=== PATIENT | male | born 1960 | race Caucasian/White ===

== ENCOUNTER 2019-02-21 12:44 | Emergency (ER) | payer OTHER ==
[2019-02-21] MEDS ORDERED: SODIUM CHLORIDE 0.9% 1,000 ML IV STA (14:13)
[2019-02-21] MEDS ORDERED: KETOROLAC 30 MG/ML 1 ML VIAL IVP STA (14:15)
--- NOTE | 2019-02-21 14:23 | ED ---
General Adult HPI - General Chief complaint: Abdominal Pain Stated complaint: poss kidney stones Time Seen by Provider: 02/21/19 14:12 Source: patient Mode of arrival: ambulatory Limitations: no limitations - History of Present Illness Initial comments: Dictation was produced using [employer] dictation software. please excuse any grammatical, word or spelling errors. Chief Complaint: 58-year-old male past medical history of kidney stones presents with left-sided flank pain. History of Present Illness: Patient is a 58-year-old male. One week ago he was diagnosed with kidney stones. Initially presented to [facility] for left-sided flank pain. Reports that he did have computed tomography scan. He was discharged with outpatient follow-up to kidney stone doctor. Patient reports that did not follow-up. She states because still having some mild left- sided flank pain. Reports that it is much more improved since then. He would like some oral pain medications to get him through the next couple days. The ROS documented in this emergency department record has been reviewed and confirmed by me. Those systems with pertinent positive or negative responses have been documented in the HPI. All other systems are other negative and/or noncontributory. PHYSICAL EXAM: General Impression: Alert and oriented x3, not in acute distress HEENT: Normocephalic atraumatic, extra-ocular movements intact, pupils equal and reactive to light bilaterally, mucous membranes moist. Cardiovascular: Heart regular rate and rhythm, S1&S2 audible, no murmurs, rubs or gallops Chest: Lungs clear to auscultation bilaterally, no rhonchi, no wheeze, no rales Abdomen: Bowel sounds present, abdomen soft, non-tender, non-distended, no organomegaly Musculoskeletal: Pulses present and equal in all extremities, no peripheral edema, no CVA tenderness Motor: no focal deficits noted Neurological: CN II-XII grossly intact, no focal motor or sensory deficits noted Skin: Intact with no visualized rashes Psych: Normal affect and mood ED course: 58-year-old male presents with left-sided flank pain. Reports that he was diagnosed with kidney stone last week. Patient is well-appearing. No acute distress. All signs upon arrival are within acceptable limits. Physical examination is. The patient is in any sort of distress. [facility] records were obtained. Transferred documentation shows that patient was seen on January 26 for chief complaint of abdominal pain. He did have a computed tomography scan of the abdomen and pelvis performed showing obstructive calculus in the mid left ureter with left-sided hydronephrosis. There were 2 stones. 4 mm stone that was obstructing at that time. Also a small 2 mm stone that was in the renal pelvis. Laboratory evaluation obtained. Mild leukocytosis of 12.8. Metabolic panel is unremarkable. Her slight hyperkalemia potassium 5.3. Urinalysis is unremarkable. Patient reevaluated after fluids and analgesia. Patient requests to be discharge. He states he feels well. Patient given Rx for pain medication. He is advised follow-up with urologist. Given follow-up. Patient understandable and agreeable to disposition. Return parameters discussed. he is discharged. - Related Data Previous Rx's Medication Instructions Recorded HYDROcodone/APAP 5-325MG [[place] 1 tab PO Q6HR PRN 3 Days #12 tab 02/21/19 5-325] Allergies Allergy/AdvReac Type Severity Reaction Status Date / Time No Known Allergies Allergy Verified 02/21/19 13:43 Review of Systems ROS Statement: Those systems with pertinent positive or pertinent negative responses have been documented in the HPI. ROS Other: All systems not noted in ROS Statement are negative. Past Medical History Additional Past Medical History / Comment(s): kidney stones History of Any Multi-Drug Resistant Organisms: None Reported Past Surgical History: Tonsillectomy Past Psychological History: No Psychological Hx Reported Smoking Status: Current every day smoker Past Alcohol Use History: Abuse Past Drug Use History: Marijuana General Exam Limitations: no limitations Course Vital Signs 02/21/19 13:41 Temperature 98.5 F Pulse Rate 92 Respiratory 20 Rate Blood Pressure 132/84 O2 Sat by Pulse 98 Oximetry Medical Decision Making - Lab Data Result diagrams: 02/21/19 14:28 02/21/19 14:28 Lab Results 02/21/19 02/21/19 02/21/19 Range/Units 13:45 14:28 14:28 WBC 12.8 H (3.8-10.6) k/uL RBC 5.13 (4.30-5.90) m/uL Hgb 15.8 (13.0-17.5) gm/dL Hct 46.7 (39.0-53.0) % MCV 91.0 (80.0-100.0) fL MCH 30.9 (25.0-35.0) pg MCHC 34.0 (31.0-37.0) g/dL RDW 13.0 (11.5-15.5) % Plt Count 350 (150-450) k/uL Neutrophils % 71 % Lymphocytes % 19 % Monocytes % 6 % Eosinophils % 2 % Basophils % 1 % Neutrophils # 9.1 H (1.3-7.7) k/uL Lymphocytes # 2.5 (1.0-4.8) k/uL Monocytes # 0.8 (0-1.0) k/uL Eosinophils # 0.2 (0-0.7) k/uL Basophils # 0.1 (0-0.2) k/uL Sodium 139 (137-145) mmol/L Potassium 5.3 H (3.5-5.1) mmol/L Chloride 100 (98-107) mmol/L Carbon Dioxide 30 (22-30) mmol/L Anion Gap 9 mmol/L BUN 20 (9-20) mg/dL Creatinine 0.90 (0.66-1.25) mg/dL Est GFR (CKD-EPI)AfAm >90 (>60 ml/min/1.73 sqM) Est GFR (CKD-EPI)NonAf >90 (>60 ml/min/1.73 sqM) Glucose 100 H (74-99) mg/dL Calcium 10.2 (8.4-10.2) mg/dL Urine Color Light Yellow Urine Appearance Clear (Clear) Urine pH 6.5 (5.0-8.0) Ur Specific [place] 1.004 (1.001-1.035) Urine Protein Negative (Negative) Urine Glucose (UA) Negative (Negative) Urine Ketones Negative (Negative) Urine Blood Small H (Negative) Urine Nitrite Negative (Negative) Urine Bilirubin Negative (Negative) Urine Urobilinogen <2.0 (<2.0) mg/dL Ur Leukocyte Esterase Negative (Negative) Urine RBC <1 (0-5) /hpf Urine WBC <1 (0-5) /hpf Disposition Clinical Impression: Flank pain Disposition: HOME SELF-CARE Condition: Poor Instructions (If sedation given, give patient instructions): Flank Pain (ED) Prescriptions: HYDROcodone/APAP 5-325MG [[place] 5-325] 1 tab PO Q6HR PRN 3 Days #12 tab PRN Reason: Severe Pain Is patient prescribed a controlled substance at d/c from ED?: Yes If prescribed controlled substance>3 days was MAPS reviewed?: Prescribed <3 Days Referrals: Dima Treadwell MD [STAFF PHYSICIAN] - 1-2 days Time of Disposition: 16:03
[2019-02-21 14:29] LABS: Appearance,Urine Clear (Clear); Bilirubin,Urine Negative (Negative); Blood,Urine Small (Negative); Color,Urine Light Yellow; Glucose,Urine (UA) Negative (Negative); Ketones,Urine Negative (Negative); Leukocyte Esterase,Urine Negative (Negative); Nitrite,Urine Negative (Negative); PH, Urine 6.5 (5.0-8.0); Protein,Urine Negative (Negative); RBC,Urine <1 /hpf (0-5); Specific Gravity,Urine 1.004 (1.001-1.035); Urobilinogen,Urine <2.0 mg/dL (<2.0); WBC,Urine <1 /hpf (0-5)
[2019-02-21 14:39] LABS: Basophils # (A) 0.1 k/uL (0-0.2); Basophils % (A) 1 %; Eosinophils # (A) 0.2 k/uL (0-0.7); Eosinophils % (A) 2 %; HCT 46.7 % (39.0-53.0); HGB 15.8 gm/dL (13.0-17.5); Lymphocytes # (A) 2.5 k/uL (1.0-4.8); Lymphocytes % (A) 19 %; MCH 30.9 pg (25.0-35.0); Mean Platelet Volume 7.4; Monocytes # (A) 0.8 k/uL (0-1.0); Monocytes % (A) 6 %; Neutrophils # (A) 9.1 k/uL (1.3-7.7); Neutrophils % (A) 71 %; Platelet Count 350 k/uL (150-450); RBC 5.13 m/uL (4.30-5.90); WBC 12.8 k/uL (3.8-10.6)
[2019-02-21 14:48] LABS: African American GFR (CKD) >90 (>60 ml/min/1.73 sqM); Anion Gap 9 mmol/L; Blood Urea Nitrogen 20 mg/dL (9-20); Calcium 10.2 mg/dL (8.4-10.2); Carbon Dioxide 30 mmol/L (22-30); Chloride 100 mmol/L (98-107); Glucose 100 mg/dL (74-99); Non-African American GFR(CKD) >90 (>60 ml/min/1.73 sqM); Potassium 5.3 mmol/L (3.5-5.1); Sodium 139 mmol/L (137-145)
[2019-02-21] MEDS ORDERED: oxyCODONE-APAP 5-325MG 1 EACH TAB PO STA (15:59)
[2019-02-21 16:16] VITALS: BP 128/71; PULSE 73; RESP 19; TEMP 98.3
== END 2019-02-21 16:16 | disposition home or self-care (01) ==
LOC: EC 12:44
DX: D72.829 Elevated white blood cell count, unspecified (principal); E87.5 Hyperkalemia; F17.200 Nicotine dependence, unspecified, uncomplicated; Z87.442 Personal history of urinary calculi
CPT/HCPCS: 36415; 80048; 85025; 81001; 99284; 96374; 96361 ×2; J1885

== ENCOUNTER 2019-03-01 09:23 | Emergency (ER) | payer OTHER ==
[2019-03-01 09:58] VITALS: RESP 18
[2019-03-01] MEDS ORDERED: ONDANSETRON 4 MG/2 ML VIAL IVP STA (10:16)
[2019-03-01] MEDS ORDERED: SODIUM CHLORIDE 0.9% 1,000 ML IV STA (10:16)
[2019-03-01] MEDS ORDERED: KETOROLAC 30 MG/ML 1 ML VIAL IVP STA (10:16)
--- NOTE | 2019-03-01 10:34 | ED ---
Male Urogenital HPI - General Chief complaint: Urogenital Stated complaint: kidney stones Time Seen by Provider: 03/01/19 10:00 Source: patient Mode of arrival: ambulatory Limitations: no limitations - History of Present Illness Initial comments: Patient is a 58-year-old male presenting to emergency Department with complaints of left-sided flank pain that has been increasing over the past few days. Patient states he was diagnosed with left-sided renal stones a few weeks ago. He states the last 24 hours he has been passing small blood clots as well as having burning with urination. He did contact Dr. Harrington today and does have an appointment in the next few days. He was concerned about the blood clots so he wanted to be reevaluated. He denies fever, chills. Does admit to mild nausea, no vomiting, no diarrhea. He has no other complaints at this time. Upon arrival to the ER, his vital signs are stable. - Related Data Previous Rx's Medication Instructions Recorded HYDROcodone/APAP 5-325MG [[place] 1 tab PO Q6HR PRN 3 Days #12 tab 02/21/19 5-325] Ketorolac [Toradol] 10 mg PO Q8HR #10 tab 03/01/19 Ondansetron Odt [Zofran Odt] 4 mg PO Q8HR PRN #10 tab 03/01/19 Tamsulosin [Flomax] 0.4 mg PO DAILY #5 cap 03/01/19 Allergies Allergy/AdvReac Type Severity Reaction Status Date / Time No Known Allergies Allergy Verified 03/01/19 09:53 Review of Systems ROS Statement: Those systems with pertinent positive or pertinent negative responses have been documented in the HPI. ROS Other: All systems not noted in ROS Statement are negative. Past Medical History Past Medical History: COPD Additional Past Medical History / Comment(s): kidney stones History of Any Multi-Drug Resistant Organisms: None Reported Past Surgical History: Tonsillectomy Past Psychological History: No Psychological Hx Reported Smoking Status: Current every day smoker Past Alcohol Use History: None Reported, Abuse Past Drug Use History: Marijuana General Exam - General Exam Comments Initial Comments: GENERAL: Well-appearing, well-nourished and in no acute distress. HEAD: Atraumatic, normocephalic. EYES: Pupils equal round and reactive to light, extraocular movements intact, sclera anicteric, conjunctiva are normal. ENT: TMs normal, nares patent, oropharynx clear without exudates. Moist mucous membranes. NECK: Normal range of motion, supple without lymphadenopathy or JVD. LUNGS: Breath sounds clear to auscultation bilaterally and equal. No wheezes rales or rhonchi. HEART: Regular rate and rhythm without murmurs, rubs or gallops. ABDOMEN: Positive left flank pain, left-sided abdominal pain. Soft, nontender, normoactive bowel sounds. No guarding, no rebound. No masses appreciated. : Deferred EXTREMITIES: Normal range of motion, no pitting or edema. No clubbing or cyanosis. NEUROLOGICAL: Normal speech, normal gait. PSYCH: Normal mood, normal affect. SKIN: Warm, Dry, normal turgor, no rashes or lesions noted. Limitations: no limitations Course Vital Signs 03/01/19 03/01/19 09:53 12:46 Temperature 97.8 F 97.6 F Pulse Rate 81 67 Respiratory 18 18 Rate Blood Pressure 146/78 131/77 O2 Sat by Pulse 97 99 Oximetry Medical Decision Making - Medical Decision Making Patient is 58-year-old male presenting with left-sided renal stones for the past week. Patient has follow-up appointment with Dr. Treadwell in 2 days. Patient continues to have mild elevated leukocytosis of 14.6, UA shows moderate amount of blood, no signs of infection. KUB shows no signs of renal stones. I di scussed these findings with the patient. Patient was also given fluids, Zofran, Toradol reports improvement in his symptoms. Patient is stable for discharge today. Patient will be given prescription for Flomax, Toradol, Zofran to use as needed for symptoms. Patient will continue to follow-up with Dr. Morrissey. He is in agreement with this plan of care. Return parameters were discussed with the patient and he verbalized understanding. - Lab Data Result diagrams: 03/01/19 11:11 03/01/19 11:11 Lab Results 03/01/19 03/01/19 03/01/19 Range/Units 11:11 11:11 11:11 WBC 14.6 H (3.8-10.6) k/uL RBC 5.06 (4.30-5.90) m/uL Hgb 14.9 (13.0-17.5) gm/dL Hct 46.5 (39.0-53.0) % MCV 91.8 (80.0-100.0) fL MCH 29.4 (25.0-35.0) pg MCHC 32.0 (31.0-37.0) g/dL RDW 13.1 (11.5-15.5) % Plt Count 351 (150-450) k/uL Neutrophils % 78 % Lymphocytes % 12 % Monocytes % 6 % Eosinophils % 1 % Basophils % 2 % Neutrophils # 11.4 H (1.3-7.7) k/uL Lymphocytes # 1.8 (1.0-4.8) k/uL Monocytes # 0.8 (0-1.0) k/uL Eosinophils # 0.2 (0-0.7) k/uL Basophils # 0.2 (0-0.2) k/uL Sodium 140 (137-145) mmol/L Potassium 5.0 (3.5-5.1) mmol/L Chloride 106 (98-107) mmol/L Carbon Dioxide 27 (22-30) mmol/L Anion Gap 7 mmol/L BUN 22 H (9-20) mg/dL Creatinine 0.87 (0.66-1.25) mg/dL Est GFR (CKD-EPI)AfAm >90 (>60 ml/min/1.73 sqM) Est GFR (CKD-EPI)NonAf >90 (>60 ml/min/1.73 sqM) Glucose 94 (74-99) mg/dL Calcium 9.8 (8.4-10.2) mg/dL Total Bilirubin 0.5 (0.2-1.3) mg/dL AST 21 (17-59) U/L ALT 10 (4-49) U/L Alkaline Phosphatase 102 (38-126) U/L Total Protein 7.3 (6.3-8.2) g/dL Albumin 4.5 (3.5-5.0) g/dL Urine Color Yellow Urine Appearance Cloudy (Clear) Urine pH 6.5 (5.0-8.0) Ur Specific [place] 1.022 (1.001-1.035) Urine Protein 2+ H (Negative) Urine Glucose (UA) Negative (Negative) Urine Ketones Trace H (Negative) Urine Blood Moderate H (Negative) Urine Nitrite Negative (Negative) Urine Bilirubin Negative (Negative) Urine Urobilinogen 2.0 (<2.0) mg/dL Ur Leukocyte Esterase Negative (Negative) Urine RBC >182 H (0-5) /hpf Urine WBC 6 H (0-5) /hpf Urine Mucus Few H (None) /hpf Disposition Clinical Impression: Left flank pain, Hematuria, Renal calculus, left Disposition: HOME SELF-CARE Condition: Stable Instructions (If sedation given, give patient instructions): Kidney Stones (ED) Additional Instructions: Please return to the Emergency Department if symptoms worsen or any other concerns. Continue with medications as prescribed. Follow-up with Dr. Morrissey as discussed. Prescriptions: Tamsulosin [Flomax] 0.4 mg PO DAILY #5 cap Ketorolac [Toradol] 10 mg PO Q8HR #10 tab Ondansetron Odt [Zofran Odt] 4 mg PO Q8HR PRN #10 tab PRN Reason: Nausea Is patient prescribed a controlled substance at d/c from ED?: No Referrals: None,Stated [Primary Care Provider] - 1-2 days Dima Treadwell MD [STAFF PHYSICIAN] - 1-2 days
--- NOTE | 2019-03-01 11:11 | XR ---
EXAMINATION TYPE: XR KUB DATE OF EXAM: 03/01/2019 10:34 AM CLINICAL HISTORY: Left-sided nephrolithiasis and abdominal pain. TECHNIQUE: Single supine KUB image of the abdomen is obtained. COMPARISON: None. FINDINGS: Lung bases are well aerated. There is a mild dextro scoliosis of the lumbar spine with mild diffuse osseous demineralization. Nondilated large and small bowel are scattered throughout. No pneu moperitoneum. No radiopaque calculi are identified. IMPRESSION: No radiopaque calculi seen in the abdomen or pelvis. Nonobstructive bowel gas pattern.
[2019-03-01 11:46] LABS: Basophils # (A) 0.2 k/uL (0-0.2); Basophils % (A) 2 %; Eosinophils # (A) 0.2 k/uL (0-0.7); Eosinophils % (A) 1 %; HCT 46.5 % (39.0-53.0); HGB 14.9 gm/dL (13.0-17.5); Lymphocytes # (A) 1.8 k/uL (1.0-4.8); Lymphocytes % (A) 12 %; MCH 29.4 pg (25.0-35.0); MCV 91.8 fL (80.0-100.0); Mean Platelet Volume 7.7; Monocytes # (A) 0.8 k/uL (0-1.0); Monocytes % (A) 6 %; Neutrophils # (A) 11.4 k/uL (1.3-7.7); Neutrophils % (A) 78 %; Platelet Count 351 k/uL (150-450); RBC 5.06 m/uL (4.30-5.90); RDW 13.1 % (11.5-15.5); WBC 14.6 k/uL (3.8-10.6)
[2019-03-01 11:56] LABS: ALT 10 U/L (4-49); AST 21 U/L (17-59); African American GFR (CKD) >90 (>60 ml/min/1.73 sqM); Albumin 4.5 g/dL (3.5-5.0); Alkaline Phosphatase 102 U/L (38-126); Anion Gap 7 mmol/L; Blood Urea Nitrogen 22 mg/dL (9-20); Calcium 9.8 mg/dL (8.4-10.2); Carbon Dioxide 27 mmol/L (22-30); Chloride 106 mmol/L (98-107); Glucose 94 mg/dL (74-99); Non-African American GFR(CKD) >90 (>60 ml/min/1.73 sqM); Sodium 140 mmol/L (137-145); Total Bilirubin 0.5 mg/dL (0.2-1.3); Total Protein 7.3 g/dL (6.3-8.2)
[2019-03-01 12:10] LABS: Appearance,Urine Cloudy (Clear); Bilirubin,Urine Negative (Negative); Blood,Urine Moderate (Negative); Color,Urine Yellow; Glucose,Urine (UA) Negative (Negative); Ketones,Urine Trace (Negative); Leukocyte Esterase,Urine Negative (Negative); Mucus,Urine Few /hpf; Nitrite,Urine Negative (Negative); PH, Urine 6.5 (5.0-8.0); Protein,Urine 2+ (Negative); RBC,Urine >182 /hpf (0-5); Specific Gravity,Urine 1.022 (1.001-1.035); WBC,Urine 6 /hpf (0-5)
[2019-03-01 12:46] VITALS: BP 131/77; PULSE 67; TEMP 97.6
== END 2019-03-01 12:46 | disposition home or self-care (01) ==
LOC: EC 09:23
DX: N20.0 Calculus of kidney (principal); F17.200 Nicotine dependence, unspecified, uncomplicated
CPT/HCPCS: 36415; 80053; 85025; 81001; 74018; 99284; 96374; 96375; J2405; J1885

== ENCOUNTER 2021-06-02 10:55 | Emergency (ER) | payer OTHER ==
[2021-06-02 11:08] VITALS: TEMP 97.3
[2021-06-02] MEDS ORDERED: SODIUM CHLORIDE 0.9% 1,000 ML IV STA (11:31)
[2021-06-02] MEDS ORDERED: methylPREDNISolone SOD SUCCI 125 MG/2 ML VIAL IV STA (11:31)
[2021-06-02 11:54] LABS: Basophils # (A) 0.1 k/uL (0-0.2); Basophils % (A) 1 %; Eosinophils # (A) 0.1 k/uL (0-0.7); Eosinophils % (A) 1 %; HCT 46.5 % (39.0-53.0); Lymphocytes # (A) 1.3 k/uL (1.0-4.8); Lymphocytes % (A) 16 %; MCH 31.2 pg (25.0-35.0); MCHC 34.3 g/dL (31.0-37.0); Mean Platelet Volume 6.9; Monocytes # (A) 0.7 k/uL (0-1.0); Monocytes % (A) 8 %; Neutrophils # (A) 5.7 k/uL (1.3-7.7); Neutrophils % (A) 71 %; Platelet Count 270 k/uL (150-450); RBC 5.11 m/uL (4.30-5.90); RDW 13.7 % (11.5-15.5)
--- NOTE | 2021-06-02 12:06 | XR ---
EXAMINATION TYPE: XR chest 2V DATE OF EXAM: 06/02/2021 COMPARISON: Chest x-ray February 13, 2012 HISTORY: Difficulty in breathing. TECHNIQUE: Frontal and lateral views of the chest are obtained. FINDINGS: Background chronic emphysematous changes redemonstrated. Upper lung scarring with bilatera l suprahilar retraction is seen on current study. There is no suspicious focal air space opacity, ple ural effusion, or pneumothorax seen. The cardiac silhouette size remains within normal limits. The osseous structures are intact. IMPRESSION: Chronic emphysematous and pulmonary fibrotic change without acute pulmonary process.
--- NOTE | 2021-06-02 12:08 | ED ---
SOB HPI - General Chief Complaint: Shortness of Breath Stated Complaint: ADDIE Time Seen by Provider: 06/02/21 11:17 Source: patient, RN notes reviewed, old records reviewed Mode of arrival: wheelchair Limitations: no limitations - History of Present Illness Initial Comments: This patient's a 52-year-old male with a history of COPD who presents with worse aime shortness of breath, cough and headache for the past 2 days. Patient states that he is feeling somewhat better today compared to yesterday. Patient states that he has been using his corticosteroid inhaler. Patient denies any recent fever. Denies any nausea or vomiting. He states that he has been feeling slightly lightheaded. - Related Data Previous Rx's Medication Instructions Recorded HYDROcodone/APAP 5-325MG [[place] 1 tab PO Q6HR PRN 3 Days #12 tab 02/21/19 5-325] Ketorolac [Toradol] 10 mg PO Q8HR #10 tab 03/01/19 Ondansetron Odt [Zofran Odt] 4 mg PO Q8HR PRN #10 tab 03/01/19 Tamsulosin [Flomax] 0.4 mg PO DAILY #5 cap 03/01/19 predniSONE [Deltasone] 20 mg PO DIRECTED #12 tab 06/02/21 Allergies Allergy/AdvReac Type Severity Reaction Status Date / Time No Known Allergies Allergy Verified 06/02/21 11:08 Review of Systems ROS Statement: Those systems with pertinent positive or pertinent negative responses have been documented in the HPI. ROS Other: All systems not noted in ROS Statement are negative. Past Medical History Past Medical History: COPD Additional Past Medical History / Comment(s): kidney stones History of Any Multi-Drug Resistant Organisms: None Reported Past Surgical History: Tonsillectomy Past Psychological History: No Psychological Hx Reported Smoking Status: Current every day smoker Past Alcohol Use History: None Reported, Abuse Past Drug Use History: Marijuana General Exam - General Exam Comments Initial Comments: 52-year-old male. Alert and oriented. No acute distress. Limitations: no limitations General appearance: alert, in no apparent distress Head exam: Present: atraumatic, normocephalic, normal inspection Eye exam: Present: normal appearance ENT exam: Present: normal exam, mucous membranes moist Neck exam: Present: normal inspection. Absent: tenderness, meningismus, lymphadenopathy Respiratory exam: Present: decreased breath sounds (On the left lower lung). Absent: normal lung sounds bilaterally, respiratory distress, wheezes, rales, rhonchi, stridor Cardiovascular Exam: Present: regular rate, normal rhythm, normal heart sounds. Absent: systolic murmur, diastolic murmur, rubs, gallop, clicks GI/Abdominal exam: Present: soft, normal bowel sounds. Absent: distended, tenderness, guarding, rebound, rigid Extremities exam: Present: normal inspection, full ROM, normal capillary refill. Absent: tenderness, pedal edema, joint swelling, calf tenderness Back exam: Present: normal inspection Neurological exam: Present: alert Psychiatric exam: Present: normal affect, normal mood Skin exam: Present: warm Course Vital Signs 06/02/21 06/02/21 11:04 11:18 Temperature 97.3 F L Pulse Rate 100 Respiratory 20 20 Rate Blood Pressure 112/76 O2 Sat by Pulse 98 Oximetry Medical Decision Making - Medical Decision Making This is a 60-year-old male presents the ER for complaints of cough, headache shortness of breath for 2 days. Patient has history of COPD. Is a nonproductive cough. Labwork was reviewed and unremarkable. Chest x-ray shows chronic emphysema change. Patient reports he feels better after IV fluids. All lab work was reviewed with mildly elevated lactic acid was given IV fluid resuscitation. Troponin is negative. EKG shows no changes. Patient will be treated with by mouth steroids continue his outpatient inhaler. Advised likely viral syndrome. Discussed return parameters. Discussed following up with grey washer with chronic COPD. - Lab Data Result diagrams: 06/02/21 11:40 06/02/21 11:40 Lab Results 06/02/21 06/02/21 06/02/21 Range/Units 11:40 11:40 11:40 WBC 8.0 (3.8-10.6) k/uL RBC 5.11 (4.30-5.90) m/uL Hgb 16.0 (13.0-17.5) gm/dL Hct 46.5 (39.0-53.0) % MCV 91.0 (80.0-100.0) fL MCH 31.2 (25.0-35.0) pg MCHC 34.3 (31.0-37.0) g/dL RDW 13.7 (11.5-15.5) % Plt Count 270 (150-450) k/uL MPV 6.9 Neutrophils % 71 % Lymphocytes % 16 % Monocytes % 8 % Eosinophils % 1 % Basophils % 1 % Neutrophils # 5.7 (1.3-7.7) k/uL Lymphocytes # 1.3 (1.0-4.8) k/uL Monocytes # 0.7 (0-1.0) k/uL Eosinophils # 0.1 (0-0.7) k/uL Basophils # 0.1 (0-0.2) k/uL PT (9.0-12.0) sec INR (<1.2) APTT (22.0-30.0) sec Sodium (137-145) mmol/L Potassium (3.5-5.1) mmol/L Chloride (98-107) mmol/L Carbon Dioxide (22-30) mmol/L Anion Gap mmol/L BUN (9-20) mg/dL Creatinine (0.66-1.25) mg/dL Est GFR (CKD-EPI)AfAm (>60 ml/min/1.73 sqM) Est GFR (CKD-EPI)NonAf (>60 ml/min/1.73 sqM) Glucose (74-99) mg/dL Plasma Lactic Acid [place] (0.7-2.0) mmol/L Calcium (8.4-10.2) mg/dL Magnesium (1.6-2.3) mg/dL Total Bilirubin (0.2-1.3) mg/dL AST (17-59) U/L ALT (4-49) U/L Alkaline Phosphatase (38-126) U/L Troponin I (0.000-0.034) ng/mL Total Protein (6.3-8.2) g/dL Albumin (3.5-5.0) g/dL Coronavirus (PCR) Not Detected (Not Detectd) Influenza Type A RNA Not Detected (Not Detectd) Influenza Type B (PCR) Not Detected (Not Detectd) 06/02/21 06/02/21 06/02/21 Range/Units 11:40 11:40 11:40 WBC (3.8-10.6) k/uL RBC (4.30-5.90) m/uL Hgb (13.0-17.5) gm/dL Hct (39.0-53.0) % MCV (80.0-100.0) fL MCH (25.0-35.0) pg MCHC (31.0-37.0) g/dL RDW (11.5-15.5) % Plt Count (150-450) k/uL MPV Neutrophils % % Lymphocytes % % Monocytes % % Eosinophils % % Basophils % % Neutrophils # (1.3-7.7) k/uL Lymphocytes # (1.0-4.8) k/uL Monocytes # (0-1.0) k/uL Eosinophils # (0-0.7) k/uL Basophils # (0-0.2) k/uL PT 10.2 (9.0-12.0) sec INR 0.9 (<1.2) APTT 26.0 (22.0-30.0) sec Sodium 137 (137-145) mmol/L Potassium 4.7 (3.5-5.1) mmol/L Chloride 102 (98-107) mmol/L Carbon Dioxide 21 L (22-30) mmol/L Anion Gap 14 mmol/L BUN 25 H (9-20) mg/dL Creatinine 0.84 (0.66-1.25) mg/dL Est GFR (CKD-EPI)AfAm >90 (>60 ml/min/1.73 sqM) Est GFR (CKD-EPI)NonAf >90 (>60 ml/min/1.73 sqM) Glucose 106 H (74-99) mg/dL Plasma Lactic Acid [place] 2.4 H* (0.7-2.0) mmol/L Calcium 9.3 (8.4-10.2) mg/dL Magnesium 1.7 (1.6-2.3) mg/dL Total Bilirubin 1.1 (0.2-1.3) mg/dL AST 33 (17-59) U/L ALT 18 (4-49) U/L Alkaline Phosphatase 98 (38-126) U/L Troponin I (0.000-0.034) ng/mL Total Protein 8.1 (6.3-8.2) g/dL Albumin 4.7 (3.5-5.0) g/dL Coronavirus (PCR) (Not Detectd) Influenza Type A RNA (Not Detectd) Influenza Type B (PCR) (Not Detectd) 06/02/21 Range/Units 11:40 WBC (3.8-10.6) k/uL RBC (4.30-5.90) m/uL Hgb (13.0-17.5) gm/dL Hct (39.0-53.0) % MCV (80.0-100.0) fL MCH (25.0-35.0) pg MCHC (31.0-37.0) g/dL RDW (11.5-15.5) % Plt Count (150-450) k/uL MPV Neutrophils % % Lymphocytes % % Monocytes % % Eosinophils % % Basophils % % Neutrophils # (1.3-7.7) k/uL Lymphocytes # (1.0-4.8) k/uL Monocytes # (0-1.0) k/uL Eosinophils # (0-0.7) k/uL Basophils # (0-0.2) k/uL PT (9.0-12.0) sec INR (<1.2) APTT (22.0-30.0) sec Sodium (137-145) mmol/L Potassium (3.5-5.1) mmol/L Chloride (98-107) mmol/L Carbon Dioxide (22-30) mmol/L Anion Gap mmol/L BUN (9-20) mg/dL Creatinine (0.66-1.25) mg/dL Est GFR (CKD-EPI)AfAm (>60 ml/min/1.73 sqM) Est GFR (CKD-EPI)NonAf (>60 ml/min/1.73 sqM) Glucose (74-99) mg/dL Plasma Lactic Acid [place] (0.7-2.0) mmol/L Calcium (8.4-10.2) mg/dL Magnesium (1.6-2.3) mg/dL Total Bilirubin (0.2-1.3) mg/dL AST (17-59) U/L ALT (4-49) U/L Alkaline Phosphatase (38-126) U/L Troponin I <0.012 (0.000-0.034) ng/mL Total Protein (6.3-8.2) g/dL Albumin (3.5-5.0) g/dL Coronavirus (PCR) (Not Detectd) Influenza Type A RNA (Not Detectd) Influenza Type B (PCR) (Not Detectd) 06/02/21 12:08 EKG shows a sinus rhythm normal ECG. Ventricular rate of 73 bpm. HI interval is 140 ms. QRS ration is 90 ms. QT QTc is 352/[address] elevation or T- wave inversions. - Radiology Data Radiology results: report reviewed Chronic emphysematous and pulmonary fibrotic changes without acute pulmonary process. Disposition Clinical Impression: COPD exacerbation, Viral syndrome, Dehydration Disposition: HOME SELF-CARE Condition: Good Instructions (If sedation given, give patient instructions): COPD (Chronic Obstructive Pulmonary Disease) (ED) Additional Instructions: Patient is to complete the steroids as prescribed. Following up with primary care physician and grey washer. Return to the emergency department if any alarming signs or symptoms occur. Rest, increase fluids. Prescriptions: predniSONE [Deltasone] 20 mg PO DIRECTED #12 tab Is patient prescribed a controlled substance at d/c from ED?: No Referrals: Javier Jones MD [Primary Care Provider] - 1-2 days Stone Steele MD [STAFF PHYSICIAN] - 1-2 days Time of Disposition: 13:07
[2021-06-02 12:14] LABS: ALT 18 U/L (4-49); AST 33 U/L (17-59); African American GFR (CKD) >90 (>60 ml/min/1.73 sqM); Albumin 4.7 g/dL (3.5-5.0); Alkaline Phosphatase 98 U/L (38-126); Anion Gap 14 mmol/L; Blood Urea Nitrogen 25 mg/dL (9-20); Calcium 9.3 mg/dL (8.4-10.2); Carbon Dioxide 21 mmol/L (22-30); Chloride 102 mmol/L (98-107); Glucose 106 mg/dL (74-99); Magnesium 1.7 mg/dL (1.6-2.3); Non-African American GFR(CKD) >90 (>60 ml/min/1.73 sqM); Potassium 4.7 mmol/L (3.5-5.1); Sodium 137 mmol/L (137-145); Total Bilirubin 1.1 mg/dL (0.2-1.3); Total Protein 8.1 g/dL (6.3-8.2)
[2021-06-02 12:20] LABS: INR 0.9 (<1.2); Prothrombin Time 10.2 sec (9.0-12.0)
[2021-06-02 13:33] VITALS: RESP 18
[2021-06-02 13:39] VITALS: BP 134/88; PULSE 78
== END 2021-06-02 13:38 | disposition home or self-care (01) ==
LOC: EC 10:55
DX: J44.1 Chronic obstructive pulmonary disease with (acute) exacerbation (principal); B34.9 Viral infection, unspecified; E86.0 Dehydration; F17.200 Nicotine dependence, unspecified, uncomplicated; F12.90 Cannabis use, unspecified, uncomplicated; Z87.442 Personal history of urinary calculi; Z20.822 Contact with and (suspected) exposure to COVID-19
CPT/HCPCS: 99285; 96374; 96361; 36415; 93005; 80053; 83605; 83735; 84484; 85025; 85610; 85730; 87502; 87635; 71046; J2930

== ENCOUNTER 2021-07-27 05:32 | Emergency (ER) | payer OTHER ==
[2021-07-27 05:43] VITALS: BP 134/80; PULSE 75; RESP 18; TEMP 98.1
--- NOTE | 2021-07-27 06:16 | ED ---
Recheck HPI - General Chief Complaint: Recheck/Abnormal Lab/Rx Stated Complaint: ADDIE Time Seen by Provider: 07/27/21 06:03 Source: patient, RN notes reviewed Mode of arrival: ambulatory Limitations: no limitations - History of Present Illness Initial Comments: This is a 60-year-old male who presents the emergency department for refills on Trelegy Ellipta and his Ventolin inhaler. His PCP was Dr. Jones, however he is no longer accepting his insurance and he has no refills left on the medication. States that yesterday he began to develop chest pain that improved with 2 baby aspirin. Additionally, he reports right-sided lower back pain began 2-3 days ago. He believes that he overworked himself at his job. Denies any saddle anesthesia or loss of bowel/bladder control. Patient declines any workup for the chest or back pain. States that he believes the chest pain was likely related to not having his inhaler. Reports that he will watch this and return if he gets any worse. Denies any fevers, chills, sore throat, cough, palpitations, abdominal pain, nausea, vomiting, diarrhea, or headaches. MD Complaint: medication refill request - Related Data Previous Rx's Medication Instructions Recorded HYDROcodone/APAP 5-325MG [[place] 1 tab PO Q6HR PRN 3 Days #12 tab 02/21/19 5-325] Ketorolac [Toradol] 10 mg PO Q8HR #10 tab 03/01/19 Ondansetron Odt [Zofran Odt] 4 mg PO Q8HR PRN #10 tab 03/01/19 Tamsulosin [Flomax] 0.4 mg PO DAILY #5 cap 03/01/19 predniSONE [Deltasone] 20 mg PO DIRECTED #12 tab 06/02/21 Albuterol Inhaler [Ventolin Hfa 2 puff INHALATION RT-QID #8 gm 07/27/21 Inhaler] Fluticasone/Umeclidin/Vilanter 1 inhalation INHALATION QAM #1 07/27/21 [Trelegy Ellipta 100-62.5-25] dispenser Allergies Allergy/AdvReac Type Severity Reaction Status Date / Time No Known Allergies Allergy Verified 07/27/21 05:42 Review of Systems ROS Statement: Those systems with pertinent positive or pertinent negative responses have been documented in the HPI. ROS Other: All systems not noted in ROS Statement are negative. Past Medical History Past Medical History: COPD Additional Past Medical History / Comment(s): kidney stones History of Any Multi-Drug Resistant Organisms: None Reported Past Surgical History: Tonsillectomy Past Psychological History: No Psychological Hx Reported Smoking Status: Current every day smoker, Heavy tobacco smoker Past Alcohol Use History: None Reported, Abuse Past Drug Use History: Marijuana General Exam Limitations: no limitations General appearance: alert, in no apparent distress Head exam: Present: atraumatic, normocephalic, normal inspection Respiratory exam: Present: decreased breath sounds. Absent: respiratory distress, wheezes, rales, rhonchi, stridor, accessory muscle use Cardiovascular Exam: Present: regular rate, normal rhythm, normal heart sounds. Absent: systolic murmur, diastolic murmur, rubs, gallop, clicks Neurological exam: Present: alert, oriented X3, CN II-XII intact Psychiatric exam: Present: normal affect, normal mood Skin exam: Present: warm, dry, intact, normal color. Absent: rash Course Vital Signs 07/27/21 05:40 Temperature 98.1 F Pulse Rate 75 Respiratory 18 Rate Blood Pressure 134/80 O2 Sat by Pulse 99 Oximetry Medical Decision Making - Medical Decision Making This is a 60-year-old male who presents to the emergency department for medication refills. Prescriptions for Trelegy Ellipta and Ventolin inhaler provided. I also provided 2 refills given the necessity of the medication in the event it takes the patient a couple of months to find a new primary care provider. I did offer to do an x-ray and additional workup for the back pain, however he declined and states that he will continue to monitor this and return if it doesn't improve. I also advised a workup for the chest pain with an EKG and potentially blood work. Patient again declines stating that he will pay attention of this and he believes it was due to not having his Trelegy or Ventolin. I did review risks of chest pain with the patient, including heart attack which may lead to . Patient expresses understanding and is willing to accept these risks. I listed several primary care providers on the patient's discharge form. I am not sure if any of them will accept his insurance or not, however he is advised to call them and see if he is able to establish with any of them. Return precautions reviewed in depth, the patient is instructed to return to the emergency department with any new, worsening, or concerning symptoms. Patient verbalized understanding. This case was discussed in detail with the attending ED physician. Presentation, findings, and treatment plan discussed in detail as well. Disposition Clinical Impression: Encounter for medication refill Disposition: HOME SELF-CARE Instructions (If sedation given, give patient instructions): COPD (Chronic Obstructive Pulmonary Disease) (ED) Additional Instructions: Return to the emergency department with any new, worsening, or concerning symptoms. Become established with a primary care provider as soon as you are able to. I listed several providers to contact on your discharge forms. Prescriptions: Fluticasone/Umeclidin/Vilanter [Trelegy Ellipta 100-62.5-25] 1 inhalation INHALATION QAM #1 dispenser Albuterol Inhaler [Ventolin Hfa Inhaler] 2 puff INHALATION RT-QID #8 gm Is patient prescribed a controlled substance at d/c from ED?: No Referrals: None,Stated [Primary Care Provider] - 1-2 days Ruby Kemp MD [REFERRING] - 1-2 days Jennifer Baca MD [STAFF PHYSICIAN] - 1-2 days Tiarra Velazquez NPC [STAFF PHYSICIAN] - 1-2 days Mari Rose DO [REFERRING] - 1-2 days Tiff Faustin MD [STAFF PHYSICIAN] - 1-2 days
== END 2021-07-27 06:17 | disposition home or self-care (01) ==
LOC: EC 05:32
DX: Z76.0 Encounter for issue of repeat prescription (principal); J44.9 Chronic obstructive pulmonary disease, unspecified; F17.200 Nicotine dependence, unspecified, uncomplicated
CPT/HCPCS: 99281

== ENCOUNTER 2021-10-28 06:00 | Emergency (ER) | payer OTHER ==
[2021-10-28 06:06] VITALS: BP 148/70; PULSE 82; RESP 16; TEMP 97.7
--- NOTE | 2021-10-28 06:40 | ED ---
General Adult HPI - General Chief complaint: Recheck/Abnormal Lab/Rx Stated complaint: Medication refill Time Seen by Provider: 10/28/21 06:06 Source: patient, RN notes reviewed, old records reviewed Mode of arrival: ambulatory Limitations: no limitations - History of Present Illness Initial comments: Patient is a 61-year-old male with past medical history remarkable for marijuana abuse, COPD on inhalers at home who presents emergency department seeking a refill for histology inhaler. His PCP is being investigated and he cannot receive his medications from him. Has no acute complaints. Denies difficulty breathing, chest pain, abdominal pain, nausea, vomiting. Presents solely for a refill on his prescription. - Related Data Previous Rx's Medication Instructions Recorded HYDROcodone/APAP 5-325MG [[place] 1 tab PO Q6HR PRN 3 Days #12 tab 02/21/19 5-325] Ketorolac [Toradol] 10 mg PO Q8HR #10 tab 03/01/19 Ondansetron Odt [Zofran Odt] 4 mg PO Q8HR PRN #10 tab 03/01/19 Tamsulosin [Flomax] 0.4 mg PO DAILY #5 cap 03/01/19 predniSONE [Deltasone] 20 mg PO DIRECTED #12 tab 06/02/21 Albuterol Inhaler [Ventolin Hfa 2 puff INHALATION RT-QID #8 gm 07/27/21 Inhaler] Fluticasone/Umeclidin/Vilanter 1 inhalation INHALATION QAM #1 07/27/21 [Trelegy Ellipta 100-62.5-25] dispenser Fluticasone/Umeclidin/Vilanter 1 inhalation INHALATION QAM #1 each 10/28/21 [Trelegy Ellipta 100-62.5-25] Allergies Allergy/AdvReac Type Severity Reaction Status Date / Time No Known Allergies Allergy Verified 10/28/21 06:01 Review of Systems ROS Statement: Those systems with pertinent positive or pertinent negative responses have been documented in the HPI. Review of Systems: CONST: Denies fever EYES: Denies blurry vision ENT: Denies nasal congestion C/V: Denies Chest pain RESP: Denies shortness of breath GI: Denies abdominal pain : Denies dysuria SKIN: Denies rash. MSK: Denies joint pain. NEURO: Denies headache ROS Other: All systems not noted in ROS Statement are negative. Past Medical History Past Medical History: COPD Additional Past Medical History / Comment(s): kidney stones History of Any Multi-Drug Resistant Organisms: None Reported Past Surgical History: Tonsillectomy Past Psychological History: No Psychological Hx Reported Smoking Status: Current every day smoker, Heavy tobacco smoker Past Alcohol Use History: None Reported, Abuse Past Drug Use History: Marijuana General Exam - General Exam Comments Initial Comments: General: Appears in no acute distress. HEAD: Normal with no signs of head trauma. EYES: EOMI ENT: Hearing grossly intact RESPIRATORY: Clear breath sounds bilaterally. No wheezes, rales, or rhonchi. No hypoxia. No increased work of breathing. C/V: Regular rate and rhythm. S1 and S2 auscultated. ABD: Abd is soft, nontender, nondistended EXT: Normal range of motion, no obvious deformity SKIN: No rashes or lesions observed on exposed skin. NEURO: Alert and oriented 4. Limitations: no limitations Course Vital Signs 10/28/21 06:02 Temperature 97.7 F Pulse Rate 82 Respiratory 16 Rate Blood Pressure 148/70 O2 Sat by Pulse 98 Oximetry Medical Decision Making - Medical Decision Making Based on patient's presentation and physical exam, he presents for a medication refill. Has no other acute complaints at this time. Vital signs are within normal limits. He'll be provided with a new prescription for his Trelegy. I will send it to his pharmacy. He was in agreement with this plan. I will provide the patient with a prescription for Trelegy. I instructed the patient to follow up with their PCP in the next 1-3 days. I explained that the patient should return to the emergency department if they experience any worsening symptoms. Strict return precautions were discussed with the patient. The patient expressed understanding of these instructions. I answered all questions that the patient had. The patient was discharged home in good condition with their prescriptions and follow up information. Disposition Clinical Impression: Medication refill Disposition: HOME SELF-CARE Condition: Good Prescriptions: Fluticasone/Umeclidin/Vilanter [Trelegy Ellipta 100-62.5-25] 1 inhalation INHALATION QAM #1 each Is patient prescribed a controlled substance at d/c from ED?: No Referrals: None,Stated [Primary Care Provider] - 1-2 days Ruby Kemp MD [REFERRING] - 1-2 days Time of Disposition: 06:30
== END 2021-10-28 07:45 | disposition home or self-care (01) ==
LOC: EC 06:00
DX: Z76.0 Encounter for issue of repeat prescription (principal); J44.9 Chronic obstructive pulmonary disease, unspecified; F17.209 Nicotine dependence, unspecified, with unspecified nicotine-induced disorders
CPT/HCPCS: 99282